=== PATIENT | female | born 1970 | race Asian ===

== ENCOUNTER 2017-02-28 22:59 | Emergency (ER) | payer BC ==
[~2017-02-28] VITALS: Ht 165.1 cm; Wt 53.5 kg
[2017-02-28 23:03] VITALS: Ht 165.1 cm; Wt 53.5 kg
[2017-02-28] MEDS ORDERED: SOD CHLORIDE 0.9% 1,000 ML IV STA (23:32)
[2017-02-28] MEDS ORDERED: KETOROLAC 15 MG INJ IV STA (23:32)
[2017-02-28] MEDS ORDERED: ONDANSETRON 4 MG INJ IV STA (23:32)
[2017-02-28 23:53] LABS: BASOPHILS % 0.2 % (0.0-2.0); EOSINOPHILS % 0.2 % (0.0-7.0); HEMATOCRIT 39.1 % (37.0-47.0); HEMOGLOBIN 12.5 g/dl (12.0-16.0); LYMPHOCYTES % 7.5 % (15.0-51.0); MEAN CORPUSCULAR HEMOGLOBIN 29.1 pg (29.0-33.0); MEAN CORPUSCULAR VOLUME 90.9 fl (82.0-101.0); MEAN PLATELET VOLUME 8.8 fl (7.4-10.4); MONOCYTE # 0.5 10^3/ul (0.3-0.9); NEUTROPHILS % 87.8 % (39.0-77.0); PLATELET COUNT 275 10^3/UL (140-415); RED CELL DISTRIBUTION WIDTH 12.6 % (11.5-14.5); WHITE BLOOD COUNT 12.6 10^3/ul (4.8-10.8)
[2017-03-01 00:11] LABS: ALBUMIN/GLOBULIN RATIO 1.21; BILIRUBIN,INDIRECT 0.1 mg/dl (0-1.1); BILIRUBIN,TOTAL 0.1 mg/dl (0.2-1.3); CALCIUM 9.2 mg/dl (8.4-10.2); CREATININE 0.83 mg/dl (0.44-1.00); POTASSIUM 3.7 mmol/L (3.5-5.1); TOTAL PROTEIN 7.3 g/dl (6.1-8.1)
--- NOTE | 2017-03-01 01:00 | ERD ---
ER Documentation Chief Complaint Date/Time DATE: 03/01/17 TIME: 00:58 Chief Complaint abd/lower bacl pain x 2 days. pain when urinate. n/v today HPI This is a 46-year-old female presenting to the emergency department complaining of nausea, nonbilious nonbloody vomiting nonbloody diarrhea, moderate to severe abdominal pain in all quadrants for 1 day. Denies any fever. She admits to having dysuria and hematuria for 1 week. ROS All systems reviewed and are negative except as per history of present illness. Medications Home Meds Active Scripts Phenazopyridine Hcl* (Phenazopyridine Hcl*) 100 Mg Tablet, 100 MG PO TID, #30 TAB Prov:ELIAZAR JARAMILLO PA-C 03/01/17 Cephalexin* (Keflex*) 500 Mg Capsule, 500 MG PO Q6, #40 CAP Prov:ELIAZAR JARAMILLO PA-C 03/01/17 Ondansetron (Ondansetron Odt) 4 Mg Tab.rapdis, 4 MG PO Q6H Y for NAUSEA AND/OR VOMITING, #14 TAB Prov:ELIAZAR JARAMILLO PA-C 03/01/17 Allergies Allergies: Coded Allergies: morphine (Verified Allergy, Severe, SOB, 02/28/17) PMhx/Soc History of Surgery: No Anesthesia Reaction: No Hx Neurological Disorder: No Hx Respiratory Disorders: No Hx Cardiac Disorders: Yes (mitral valve prolapse) Hx Psychiatric Problems: No Hx Miscellaneous Medical Probl: No Hx Alcohol Use: No Hx Substance Use: No Hx Tobacco Use: No Smoking Status: Never smoker Physical Exam Vitals Vital Signs Date Time Temp Pulse Resp B/P Pulse Ox O2 Delivery O2 Flow Rate FiO2 03/01/17 02:40 98.1 53 17 107/57 99 Room Air 02/28/17 23:03 98.1 56 20 106/52 100 Physical Exam GENERAL: well-developed/well-nourished, in no apparent distress, non-toxic appearing HENT: NC/AT, moist mucous membranes EYES: Conjunctiva normal NECK: Supple, no lymphadenopathy PULM: CTA bilaterally, no rales, rhonchi, or wheezing heard CV: Normal S1S2, RRR, good capillary refill GI: Soft, non-distended, tender to palpation all quadrants Normal bowel sounds, no masses or organomegaly felt on exam No gross peritonitis, no bruits Negative Rovsing, negative Nascimento, negative McBurney's point, Negative CVAT BACK: No masses EXT: No clubbing, cyanosis, or edema NEURO: Alert and Orientated SKIN: Intact, normal turgor PSYCH: Normal mood and mentation Result Diagram: 02/28/17 2350 02/28/17 2350 Results 24 hrs Laboratory Tests Test 02/28/17 00:24 02/28/17 23:50 Urine Color ALONZO Urine Clarity CLOUDY Urine pH 5.0 Urine Specific [place] 1.025 Urine Ketones NEGATIVEmg/dL Urine Nitrite NEGATIVEmg/dL Urine Bilirubin NEGATIVEmg/dL Urine Urobilinogen NEGATIVEmg/dL Urine Leukocyte Esterase TRACELeu/ul Urine Microscopic RBC > 182/HPF Urine Microscopic WBC 48/HPF Urine Mucus FEW/HPF Urine Hemoglobin 3+mg/dL Urine Glucose NEGATIVEmg/dL Urine Total Protein 2+mg/dl White Blood Count 12.610^3/ul Red Blood Count 4.3010^6/ul Hemoglobin 12.5g/dl Hematocrit 39.1% Mean Corpuscular Volume 90.9fl Mean Corpuscular Hemoglobin 29.1pg Mean Corpuscular Hemoglobin Concent 32.0g/dl Red Cell Distribution Width 12.6% Platelet Count 14058^3/UL Mean Platelet Volume 8.8fl Neutrophils % 87.8% Lymphocytes % 7.5% Monocytes % 4.0% Eosinophils % 0.2% Basophils % 0.2% Nucleated Red Blood Cells % 0.0/100WBC Neutrophils # (Manual) 11.110^3/ul Lymphocytes # 1.010^3/ul Monocytes # 0.510^3/ul Eosinophils # 0.010^3/ul Basophils # 0.010^3/ul Nucleated Red Blood Cells # 0.010^3/ul Sodium Level 142mmol/L Potassium Level 3.7mmol/L Chloride Level 105mmol/L Carbon Dioxide Level 29mmol/L Anion Gap 12 Blood Urea Nitrogen 18mg/dl Creatinine 0.83mg/dl Glucose Level 95mg/dl Calcium Level 9.2mg/dl Total Bilirubin 0.1mg/dl Direct Bilirubin 0.00mg/dl Indirect Bilirubin 0.1mg/dl Aspartate Amino Transf (AST/SGOT) 27IU/L Alanine Aminotransferase (ALT/SGPT) 33IU/L Alkaline Phosphatase 41IU/L Total Protein 7.3g/dl Albumin 4.0g/dl Globulin 3.30g/dl Albumin/Globulin Ratio 1.21 Lipase 92U/L Current Medications Medications (Trade) Dose Ordered Sig/Hernandez Route PRN Reason Start Time Stop Time Status Last Admin Dose Admin Sodium Chloride (NS) 1,000 ml @ 1,000 mls/hr Q1H STAT IV 02/28/17 23:32 03/01/17 00:31 DC 03/01/17 00:03 Ondansetron HCl (Zofran Inj) 4 mg ONCE STAT IV 02/28/17 23:32 02/28/17 23:33 DC 03/01/17 00:02 Ketorolac Tromethamine 15 mg 15 mg ONCE STAT IV 02/28/17 23:32 02/28/17 23:33 DC 03/01/17 00:23 Ceftriaxone Sodium (Rocephin) 50 ml @ 100 mls/hr ONCE STAT IVPB 03/01/17 01:54 03/01/17 02:23 DC 03/01/17 02:04 Procedures/MDM This is a 46-year-old female presenting to the emergency department complaining of nausea, nonbilious nonbloody vomiting nonbloody diarrhea, moderate to severe abdominal pain in all quadrants for 1 day. She likely Denies any fever. She admits to having dysuria and hematuria for 1 week. On examination, patient does not appear toxic. She is afebrile. IV access established, patient was given 1 L of fluids. She is given Toradol and Zofran. Patient had significant improvement in pain. Patient had leukocytosis likely to a stress reaction. Urinalysis showed evidence of infection and hematuria, a CT scan of the abdomen and pelvis without contrast was done and showed a small nonobstructing renal stone on the left kidney, I doubt patient has a septic stone at this point Patent's symptoms were on the right. Patient was given ceftriaxone in the ED, she was given prescription Keflex for the next days. Stable to be discharged home to follow-up with her primary care physician. I have discussed with her to return to the ER for any worsening condition of patient understands and agrees with this plan Departure Diagnosis: Primary Impression: UTI (urinary tract infection) Additional Impression: Nausea vomiting and diarrhea Condition: Stable BASHARDOUST,NUSHA N. PA-C Mar 01, 2017 01:00
[2017-03-01 01:25] LABS: ADD UMIC YES; UR ASCORBIC ACID 40 mg/dL (NEGATIVE); UR BILIRUBIN (Dip) NEGATIVE (NEGATIVE); UR BLOOD (Dip) 3+ mg/dL (NEGATIVE); UR CLARITY CLOUDY (CLEAR); UR COLOR AMBER (YELLOW); UR GLUCOSE (Dip) NEGATIVE (NEGATIVE); UR KETONES (Dip) NEGATIVE (NEGATIVE); UR LEUKOCYTE ESTERASE (Dip) TRACE Leu/ul (NEGATIVE); UR MUCUS FEW /HPF (NONE SEEN); UR NITRITE (Dip) NEGATIVE (NEGATIVE); UR RBC > 182 /HPF (0-5); UR SPECIFIC GRAVITY (Dip) 1.025 (1.003-1.030); UR TOTAL PROTEIN (Dip) 2+ mg/dl (NEGATIVE); UR UROBILINOGEN (Dip) NEGATIVE (NEGATIVE)
[2017-03-01] MEDS ORDERED: CEFTRIAXONE 1 GM/50 ML (PMX) 50 ML IVPB STA (01:54)
--- NOTE | 2017-03-01 02:02 | RADRPT ---
PROCEDURE: CT ABDOMEN AND PELVIS WITHOUT CONTRAST: CLINICAL INDICATION: 46 years of age, female , abdominal pain. COMPARISON: None available. TECHNIQUE: CT of the abdomen and pelvis was performed without intravenous contrast. Oral contrast wa s not administered prior to the examination. Coronal and sagittal reformatted images were obtained from the axial source images. Images were revi ewed on a high-resolution PACS workstation. Dose information: Based on a 32 cm phantom, the estimated radiation dose (CTDIvol mGy) for each seri es in this exam is 6. The estimated cumulative dose (DLP mGy-cm) is 314. One or more of the following dose reduction techniques were used: - Automated exposure control. - Adjustment of the mA and/or kV according to patient size. - Use of iterative reconstruction technique. FINDINGS: In the absence of intravenous contrast, the study constitutes a limited assessment of the solid orga ns, bowel and vessels. LUNG BASES: Normal noncontrast appearance. ABDOMEN/PELVIS: Liver: 1.1 cm hypodensity right hepatic lobe likely represents a cyst . Otherwise normal. Gallbladder: Normal noncontrast appearance. Bile ducts: No intrahepatic or extrahepatic biliary duct dilatation. Spleen: Normal noncontrast appearance. Pancreas: Normal noncontrast appearance. Adrenal glands: Normal noncontrast appearance. Kidneys and ureters: There is a 0.4 cm nonobstructing calculus in the lower pole of the left kidney. Negative for ureteral calculi or hydronephrosis. Aorta and IVC: Normal noncontrast appearance. Lymph nodes: Normal noncontrast appearance. Gastrointestinal tract: Normal noncontrast appearance. Appendix: Normal Bladder: Normal noncontrast appearance. Pelvic Organs: The uterus and adnexa are unremarkable. Peritoneal cavity: No free fluid or free intraperitoneal air. Abdominal wall: Normal noncontrast appearance. BONES: Musculoskeletal: No suspicious bone lesions. IMPRESSION: Nonobstructing calculus left kidney. Negative for ureteral calculi or hydronephrosis. No other cause for abdominal pain is evident. RPTAT: HCTS Physician Chandra Date Time Electronically viewed and signed by Physician Chandra on 03/01/2017 02:01 GRAHAM/
[2017-03-01] MEDS ORDERED: CEPH-443 PO (02:14)
[2017-03-01] MEDS ORDERED: ONDA4TAB14 PO (02:14)
[2017-03-01] MEDS ORDERED: PHEN-612 PO (02:14)
[2017-03-01 02:40] VITALS: BP 107/57; PULSE 53; RESP 17; TEMP 98.1
== END 2017-03-01 02:40 | disposition home or self-care (01) ==
LOC: FTE 22:59
DX: N39.0 Urinary tract infection, site not specified (principal); R11.2 Nausea with vomiting, unspecified; R19.7 Diarrhea, unspecified
CPT/HCPCS: 36415; 74176; 80053; 81001; 83690; 85025; 96374; 96375; 99285; J0696; J1885; J2405; J7030